=== PATIENT | male | born 1990 | race Caucasian/White ===

== ENCOUNTER 2019-08-03 20:03 | Emergency (ER) | payer SELFPAY ==
[~2019-08-03] VITALS: Ht 180.3 cm; Wt 88.5 kg
[~2019-08-03 20:03] MED LIST: HYDR1TAB
[2019-08-03 20:10] VITALS: BP 123/71
[2019-08-03] MEDS ORDERED: IBUPROFEN 400 MG TABLET ONE (20:28)
[2019-08-03] MEDS ORDERED: IBUPROFEN 400 MG TABLET PO ONE (20:30)
== END 2019-08-03 21:25 | disposition home or self-care (01) ==
LOC: ER 20:04
DX: M25.551 Pain in right hip (principal); M25.561 Pain in right knee; M25.571 Pain in right ankle and joints of right foot; Z88.1 Allergy status to other antibiotic agents; Z79.899 Other long term (current) drug therapy; V03.00XA Pedestrian on foot injured in collision with car, pick-up truck or van in nontraffic accident, initial encounter; Y93.89 Activity, other specified; Y92.488 Other paved roadways as the place of occurrence of the external cause; Y99.8 Other external cause status
CPT/HCPCS: 73502; 73552; 73564-TC; 73610-TC